=== PATIENT | female | born 1985 | race Two or more races ===

== ENCOUNTER → 2019-07-05 | Emergency (ER) | payer OTHER ==
[~2019-07-05] VITALS: Ht 165.1 cm; Wt 81.6 kg
[2019-07-05 09:53] VITALS: BP 129/69
--- NOTE | 2019-07-05 11:15 | NUR ---
Patient discharged to home in stable condition. Written and verbal after care instructions given. Patient verbalizes understanding of instruction.
== END | disposition home or self-care (01) ==
LOC: ER 09:34
DX: S93.511A Sprain of interphalangeal joint of right great toe, initial encounter (principal); W18.39XA Other fall on same level, initial encounter; Y93.39 Activity, other involving climbing, rappelling and jumping off; Y92.89 Other specified places as the place of occurrence of the external cause; Y99.8 Other external cause status
CPT/HCPCS: 73630-TC